=== PATIENT | male | born 1970 | race Caucasian/White ===

== ENCOUNTER 2021-04-01 13:12 | Emergency (ER) | payer BC, SELFPAY ==
[2021-04-01 13:22] VITALS: BP 148/89; PULSE 68; RESP 10; TEMP 37; O2SAT 97
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
== END 2021-04-01 15:29 | disposition home or self-care (01) ==
PROVIDERS: Emergency Provider Physician Assistant
DX: S42.021A Displaced fracture of shaft of right clavicle, initial encounter for closed fracture (principal); V19.3XXA Pedal cyclist (driver) (passenger) injured in unspecified nontraffic accident, initial encounter
CPT/HCPCS: 99283; 73030